=== PATIENT | male | born 1955 | race Caucasian/White ===

== ENCOUNTER → 2017-01-14 | Outpatient (CLI) | payer BC ==
[~2017-01-14] MED LIST: AMBIEN10 MG PO; DIOVAN160 MG PO; FLOMAX0.4 M1 PO; ZYLOPRIM PO
--- NOTE | ~2017-01-14 | MR17 ---
[facility] A Service of [facility] & [facility] RADIOLOGY TEXT RESULTS PATIENT: SAMAN BLEL LOCATION: [facility] : 57 UNIT #: [id number] AGE: [address]: Jh Laughlin II, MD SEX: M ORDER DR: [id number] [facility] [address] [place], [place] [address] [id number] O MR#: [id number] Acc #: [id number] NAME: SAMAN BELL : 1955 SEX: M STUDY DATE/TIME: 01/14/2017 15:35 UNIT: [facility] ROOM: STUDY DESCRIPTION: MR Brain WWo Contrast Attending Physician: Jh Laughlin II., M.D. Referring Physician: Jh Laughlin II., M.D. Ordering Physician: Jh Laughlin II., M.D. Primary Care Physician: Angelito Martínez M.D. MRI CENTER REPORT This report is preliminary unless electronic signature is present. EXAM MRI brain with and without. HISTORY Headaches for 2 years. No trauma. Leukemia since 2002. Chemotherapy December 2016. TECHNIQUE MRI of the brain was performed prior to and following 20 mL of MultiHance. COMPARISON STUDIES Comparison study is from 12/06/2015. FINDINGS There is no evidence for a recent ischemic insult on the diffusion series. No Chiari-I malformation. Fluid or inflammatory change mastoid air cells, left greater than right. Mucous retention cyst or polyp in the right maxillary sinus. Mild generalized atrophy with prominence of perivascular spaces. The major intracranial flow voids are maintained. There is moderate white matter signal abnormality, most confluent in the periventricular white matter, nonspecific, likely due to small vessel disease. Some chronic lacunar type insults also noted in the basal ganglia bilaterally. On comparison to prior, this is not significantly changed. There is no MRI evidence for intracranial hemorrhage. There is no extraaxial fluid collection. Following contrast administration, there is no pathologic intracranial enhancement. There is nothing to suggest intracranial metastatic disease. No intracranial mass lesion. IMPRESSION 1. No evidence for intracranial metastatic disease. 2. Moderate probable sequelae of small vessel disease. Mild generalized essentially age-appropriate atrophy. 3. There is fluid or inflammatory change in the mastoid air cells [facility]. [facility] A Service of [facility] & [facility] RADIOLOGY TEXT RESULTS PATIENT: SAMAN BELL LOCATION: [facility] : 57 UNIT #: [id number] AGE: [address]: Jh Laughlin II, MD SEX: M ORDER DR: bilaterally, left greater than right. There is a mucous retention cyst or polyp in the right maxillary sinus but there is no sinus air-fluid level and the appearance of the paranasal sinuses is improved on comparison to prior study. Dictated by... Brittani Alcala M.D. THIS IS AN ELECTRONICALLY VERIFIED REPORT Brittani Alcala M.D. at 01/15/2017 4:15 PM NADIA/silvino TD: 01/15/2017 12:45 JOB #: [id number] MRI CENTER REPORT Page 1 of 1 COPY
[2017-01-14 15:26] LABS: POC - CREATININE 1.06 mg/dL (0.64-1.27); POC - GFR >60.0 mL/min (>60)
== END | disposition home or self-care (01) ==
LOC: CMRI 14:39
PROVIDERS: Psychiatry & Neurology Neurology
DX: R51 Headache (principal)
CPT/HCPCS: 70553; 82565; A9577; J1642